=== PATIENT | male | born 1965 | race Caucasian/White ===

== ENCOUNTER 2017-01-28 06:47 | Emergency (ER) | payer OTHER ==
[2017-01-28] MEDS: SODIUM CHLORIDE 0.9% FLUSH 10 ML SOL IV PRN ×2 (06:55→07:07)
[2017-01-28] MEDS ORDERED: ONDANSETRON HCL 4 MG/2 ML SOL IV ONE (06:56)
[2017-01-28] MEDS ORDERED: SOLUMEDROL 125 MG/2 ML 125 MG/2 ML PDS IV ONE (06:56)
[2017-01-28] MEDS ORDERED: SOLUMEDROL 125 MG/2 ML 125 MG/2 ML PDS ONE (07:01)
[2017-01-28] MEDS ORDERED: ONDANSETRON HCL 4 MG/2 ML SOL ONE (07:02)
[2017-01-28] MEDS: SODIUM CHLORIDE 0.9% 1000ML 1,000 ML IV SCH ×2 (07:17→08:01)
[2017-01-28 07:18] LABS: BASOPHILS % (AUTO) 0 % (0-3); EOSINOPHILS % (AUTO) 1 % (0-9); HEMATOCRIT 42 % (39-53); MEAN CORPUSCULAR HGB CONC 34.7 gm/dl (32.0-36.0); MEAN CORPUSCULAR VOLUME 82 fL (80-100); MONOCYTES % (AUTO) 6.1 % (0-12); NEUTROPHILS % (AUTO) 73.3 % (37-80)
[2017-01-28] MEDS ORDERED: PROMETHAZINE HYDROCHLORIDE 25 MG/ML SOL IV ONE (07:27)
[2017-01-28 07:30] LABS: CALCIUM 8.2 mg/dl (8.5-10.1); POTASSIUM 3.5 mMol/L (3.5-5.1)
[2017-01-28] MEDS ORDERED: PROMETHAZINE HYDROCHLORIDE 25 MG/ML SOL ONE (07:35)
[2017-01-28 08:37] VITALS: TEMP 97.4
[2017-01-28 10:21] VITALS: BP 173/79; PULSE 59; RESP 20; O2SAT 99
== END 2017-01-28 10:05 | disposition home or self-care (01) | DRG 392 ==
LOC: ED 06:47
DX: R11.2 Nausea with vomiting, unspecified (principal); Z98.890 Other specified postprocedural states
CPT/HCPCS: 36415; 70450; 80048; 85025; 93005; 99285; J2405; J2550; J2930

== ENCOUNTER 2017-05-02 08:51 | Emergency (ER) | payer OTHER ==
[2017-05-02] MEDS ORDERED: NITROGLYCERIN 0.4 MG TAB SL ONE (08:53)
[2017-05-02] MEDS ORDERED: ASPIRIN 81 MG CHEWABLE CTB ONE (08:53)
[2017-05-02] MEDS ORDERED: ASPIRIN 81 MG CHEWABLE CTB PO STA (08:54)
[2017-05-02] MEDS: NITROGLYCERIN 0.4 MG TAB SL PRN ×3 (08:56→09:11)
[2017-05-02] MEDS ORDERED: SODIUM CHLORIDE 0.9% FLUSH 10 ML SOL IV PRN (08:59)
[2017-05-02] MEDS ORDERED: MORPHINE SULFATE 10 MG/ML SOL IV PRN (08:59)
[2017-05-02 09:01] LABS: BASOPHILS % (AUTO) 1 % (0-3); EOSINOPHILS % (AUTO) 3 % (0-9); HEMATOCRIT 43 % (39-53); MEAN CORPUSCULAR HGB CONC 35.5 gm/dl (32.0-36.0); NEUTROPHILS % (AUTO) 57.3 % (37-80)
[2017-05-02 09:03] LABS: MEAN CORPUSCULAR VOLUME 81 fL (80-100)
[2017-05-02 09:11] VITALS: TEMP 98.2
[2017-05-02 09:25] LABS: CALCIUM 9.2 mg/dl (8.5-10.1); GLOM FILT RATE 63 mL/min (>60); POTASSIUM 3.9 mMol/L (3.5-5.1); SODIUM 143 mMol/L (136-145)
[2017-05-02] MEDS ORDERED: KETOROLAC TROMETHAMINE 30 MG/ML SOL IV ONE (09:25)
[2017-05-02] MEDS ORDERED: KETOROLAC TROMETHAMINE 30 MG/ML SOL ONE (09:26)
[2017-05-02 10:40] VITALS: BP 126/74; PULSE 65; RESP 15; O2SAT 97
== END 2017-05-02 10:15 | disposition home or self-care (01) | DRG 313 ==
LOC: ED 08:51
DX: R07.89 Other chest pain (principal)
CPT/HCPCS: 71010; 80048; 82550; 84484; 85025; 85378; 85610; 85730; 93005; 96374; 99284; 99285; J1885